=== PATIENT | female | born 1960 | race Caucasian/White ===

== ENCOUNTER 2018-06-25 16:06 | Emergency (ER) | payer OTHER ==
--- NOTE | 2018-06-25 16:30 | ED Physician Documentation ---
Upper Respiratory Symptoms - HISTORIAN Historian: patient - HPI Stated Complaint: fever, headache, muscle aches Chief Complaint: Upper Respiratory Symptoms (Cough, fever, body aches) Additional Information: Patient is a 57-year-old female who presents with c/o cough, congestion, and sinus pressure that started a month ago- she thought it was due to the weather. She saw Dr. Winchester a week ago and was diagnosed with a sinus infection and started on "amoxil 850mg?"- but states it did not help. On Sunday 5 days ago patient developed a fever of 103, the following day she felt better, but then on Sunday the fever came back and now she c/o body aches, cough, and congestion. She does not get the flu vaccine and smokes 1/2 ppd. Onset: days ago Duration: constant Context: same sx Severity: moderate Associated Symptoms: fever, chills, earache, sinus pain, sinus drainage, productive cough, headache Worsened by Deep Breath: No Further Comments: no - ROS CONST/EYES: weakness (muscle aches) CVS/RESP: none LYMPH: denies: leg swelling, rash GI/: none NEURO/PSYCH: dizziness (thinks it is from the antibiotic and coughing) MS/SKIN: muscle aches - PAST HX Lung Disease: denies: COPD (pt denies COPD) PE Risk Factors: none Surgeries/Procedures: (x5) Immunizations: UTD. denies: influenza, pneumovax Allergies/Adverse Reactions: Allergies Allergy/AdvReac Type Severity Reaction Status Date / Time No Known Allergies Allergy Verified 06/25/18 16:51 Home Medications: Ambulatory Orders Medication Instructions Recorded Azithromycin [Zithromax] 250 mg PO DAILY #6 tablet 06/25/18 Benzonatate [Tessalon Perle] 100 mg PO TID PRN #15 capsule 06/25/18 - SOCIAL HX Smoking History: less than 1 pack/day Alcohol Use: rarely Drug Use: none - FAMILY HX Family History: no significant history - VITAL SIGNS Vital Signs: Vital Signs Temp Pulse Resp BP Pulse Ox 99.6 F 77 18 107/71 97 06/25/18 16:06 06/25/18 16:06 06/25/18 16:06 06/25/18 16:06 06/25/18 16:06 - REVIEWED ASSESSMENTS Nursing Assessment Reviewed: Yes Vitals Reviewed: Yes ED Results Lab/Radiology - Lab Results Lab Results: Influenza Negative - Radiology Radiology Impressions: CHEST XRAY Clinical history : Cough congestion Technique pa and lateral upright Findings: The lung kelly are hyperinflated. I see no hilar or mediastinal mass. There is no pleural effusion. The thoracic spine shows spondylosis and dextroscoliosis. Breast implants are present. Impression: No acute pulmonary disease Hyperinflation. Dextroscoliosis Electronically signed on Jun 25, 2018 5:20:13 PM CDT by: Jean Perry - Orders Orders: ED Orders Category Date Time Status CHEST 2VIEW [RAD] Urgent Exams 06/25/18 Ordered INFLUENZA A&B Stat Lab 06/25/18 Uncollected Upper Respiratory Symptoms - EXAM General Appearance: alert, mild distress EENT: eyes nml inspection, nml ENT inspection, lids & conjunct. nml, PERRL, ear nml, pain over sinuses, maxillary, pharynx nml, airway nml Neck: normal inspection, supple Respiratory: speaks full sentences, rhonchi (left upper lobe) Abdomen: non-tender CVS: heart sounds normal, equal pulses Skin: color nml, no rash, warm,dry Extremities: normal range of motion Neuro/Psych: oriented x3, neuro intact, mood/affect nml Discharge Clincal Impression: Upper respiratory infection Referrals: Primary Doctor,No [Primary Care Provider] - 2 Days Additional Instructions: Take Medications as directed Zpack and Tessalon Pearls Increase fluid intake (no caffeine) Keep trying to decrease the amount of tobacco use Follow up with primary care provider next week Condition: Good Disposition: 01 HOME, SELF-CARE Decision to Admit: NO Decision Time: 17:35
--- NOTE | 2018-06-25 17:37 | Diagnostic Imaging Report ---
KENNEDI CASTAÑEDA [facility] [address] [facility] [address] [place], [place]. [address] Report Submission Date: Jun 25, 2018 5:20:13 PM CDT Patient Study Name: SHIRLEY OSEI Date: Jun 25, 2018 4:34:59 PM CDT Modality Type: DX Gender: F Description: CHEST 2VIEW : 56 Institution: [facility] Physician: KENNEDI CASTAÑEDA Pa and lateral chest Clinical history : Cough congestion Technique pa and lateral upright Findings: The lung kelly are hyperinflated. I see no hilar or mediastinal mass. There is no pleural effusion. The thoracic spine shows spondylosis and dextroscoliosis. Breast implants are present. Impression: No acute pulmonary disease Hyperinflation. Dextroscoliosis Electronically signed on Jun 25, 2018 5:20:13 PM CDT by: Jean MENG
[2018-06-25 17:48] VITALS: BP 100/70
== END 2018-06-25 17:44 | disposition home or self-care (01) ==
LOC: ED 16:06
DX: J06.9 Acute upper respiratory infection, unspecified (principal); Z72.0 Tobacco use
CPT/HCPCS: 71046; 87400; 99283

== ENCOUNTER 2019-01-28 15:50 | Emergency (ER) | payer OTHER ==
--- NOTE | 2019-01-28 16:10 | ED Physician Documentation ---
Female Urogenital Problems - HISTORIAN Historian: patient - HPI Stated Complaint: dysuria Chief Complaint: Female Urogenital Problems Additional Information: Patient presents to ED with a 2 week history of burning with urination, urinary frequency and urgency. Today she began to have low back pain. She denies fever or chills. Onset: days ago (14) Severity: moderate - Associated Symptoms Urinary Symptoms: frequent urination, discomfort w/ urination, urgency w/ urination - ROS CONST: none GI/: denies: nausea, vomiting CVS/RESP: denies: shortness of breath EYES/ENT: none NEURO/PSYCH: denies: headache MS/SKIN/LYMPH: none - PAST HX Past History: none Other History: none Surgeries/Procedures: none Allergies/Adverse Reactions: Allergies Allergy/AdvReac Type Severity Reaction Status Date / Time No Known Allergies Allergy Verified 06/25/18 16:51 Home Medications: Ambulatory Orders Medication Instructions Recorded Azithromycin [Zithromax] 250 mg PO DAILY #6 tablet 06/25/18 Benzonatate [Tessalon Perle] 100 mg PO TID PRN #15 capsule 06/25/18 Ciprofloxacin HCl [Cipro] 500 mg PO BID 7 Days #14 tablet 01/28/19 - SOCIAL HX Smoking History: cigarettes, greater than 1 pack/day Alcohol Use: none Drug Use: none - FAMILY HX Family History: none - VITAL SIGNS Vital Signs: Vital Signs Temp Pulse Resp BP Pulse Ox 100/70 06/25/18 17:45 - REVIEWED ASSESSMENTS Nursing Assessment Reviewed: Yes Vitals Reviewed: Yes ED Results Lab/Radiology - Lab Results Lab Results: UA- +1 blood, +1 leukocytes. - Orders Orders: ED Orders Category Date Time Status UA W MICRO [UA W/MICRO IF INDICATED] Routine Lab 01/28/19 16:01 Ordered Female Urogenital Problems - EXAM General Appearance: no acute distress, alert EENT: BARON Neck: No: lymphadenopathy Respiratory: no resp. distress, breath sounds nml CVS: reg rate & rhythm, heart sounds normal Abdomen: soft, non-tender, nml bowel sounds Back: CVA tenderness Skin: color nml, no rash, warm,dry Extremities: non-tender Neuro: oriented X3, sensation nml, mood/affect nml Discharge Clincal Impression: Acute cystitis without hematuria Prescriptions: Ciprofloxacin HCl [Cipro] 500 mg PO BID 7 Days #14 tablet Referrals: Primary Doctor,No [Primary Care Provider] - 2 Days Additional Instructions: 1. Take antibiotic until gone 2. Drink plenty of fluids to maintain proper hydration. Avoid soda, caffeine and alcohol 3. Follow up with PCP within 1 week 4. Return to ER for new or worsening symptoms Condition: Stable Disposition: 01 HOME, SELF-CARE Decision to Admit: NO Date of Decison to Admit: 01/28/19 Decision Time: 16:17
[2019-01-28 16:18] VITALS: BP 122/91
[2019-01-29 07:40] LABS: OCCULT BLOOD,URINE 1+ (NEGATIVE); UROBILINOGEN URINE 0.2 Eu (0.2-1.0)
== END 2019-01-28 16:23 | disposition home or self-care (01) ==
LOC: ED 15:50
DX: N30.00 Acute cystitis without hematuria (principal)
CPT/HCPCS: 81002; 87086; 87186; 99283; 99284